=== PATIENT | male | born 1935 | race Caucasian/White ===

== ENCOUNTER 2020-10-13 07:05 | Emergency (ER) | payer OTHER ==
[~2020-10-13] VITALS: Ht 172.7 cm; Wt 67.1 kg
[~2020-10-13 07:05] MED LIST: PHENERGAN12.5 MG/SU RC
[2020-10-13] MEDS ORDERED: ATENOLOL25 MG PO (07:47)
[2020-10-13] MEDS ORDERED: PEPCID AC20 MG PO (15:38)
[2020-10-13] MEDS ORDERED: GAS RELIEF125 M1 PO (15:38)
[2020-10-13] MEDS ORDERED: LEVSIN/SL0.125 MG PO (15:38)
[2020-10-13] MEDS ORDERED: INTESTINEX680 M1 PO (15:38)
== END 2020-10-13 15:51 | disposition home or self-care (01) ==
LOC: ER 07:05
DX: K29.70 Gastritis, unspecified, without bleeding (principal); R53.1 Weakness; R14.0 Abdominal distension (gaseous); Z11.52 Encounter for screening for COVID-19